=== PATIENT | female | born 1940 | race Caucasian/White ===

== ENCOUNTER → 2016-08-08 | Outpatient (CLI) | payer MEDICARE, BC ==
[~2016-08-08] MED LIST: ASPI-496 PO; ASPI-624 PO; ASPI325T4 PO; CLOP75TA22 PO; ESTR1TAB7 PO; MULT-658 PO; NITR0.4T8 SL; OMEP20TA62 PO; POLY17PO3 PO; SIMV10TA3 PO; will bring list
== END | disposition home or self-care (01) ==
LOC: CFH 09:49
PROVIDERS: ATTEND Internal Medicine Cardiovascular Disease
DX: I25.10 Atherosclerotic heart disease of native coronary artery without angina pectoris (principal); I08.1 Rheumatic disorders of both mitral and tricuspid valves
CPT/HCPCS: 93306

== ENCOUNTER → 2016-09-22 | Outpatient (CLI) | payer MEDICARE, BC | END | disposition home or self-care (01) | LOC: CFH 13:57 | PROVIDERS: ATTEND Family Medicine | DX: Z13.820 Encounter for screening for osteoporosis (principal); M81.0 Age-related osteoporosis without current pathological fracture; C50.911 Malignant neoplasm of unspecified site of right female breast | CPT/HCPCS: 77080 ==

== ENCOUNTER → 2016-10-05 | Outpatient (CLI) | payer MEDICARE, BC | END | disposition home or self-care (01) | LOC: CFH 13:28 | PROVIDERS: ATTEND Family Medicine | DX: R94.5 Abnormal results of liver function studies (principal) | CPT/HCPCS: 36415; 80076 ==

== ENCOUNTER → 2016-10-06 | Outpatient (CLI) | payer MEDICARE, BC ==
[2016-10-06 16:03] LABS: HEP B SURF. AB > 1000.0 mIU/mL (0.0-10.0)
[2016-10-06 16:42] LABS: HEPATITIS C VIRUS ANTIBODY Nonreactive (Nonreactive)
[2016-10-06 16:43] LABS: HEPATITIS A ANTIBODY TOTAL Reactive (Nonreactive)
== END | disposition home or self-care (01) ==
LOC: LAB 14:45
PROVIDERS: ATTEND Family Medicine
DX: R94.5 Abnormal results of liver function studies (principal)
CPT/HCPCS: 36415; 80076; 82390; 82728; 84075; 84080; 86704; 86705; 86706; 86708; 86709; 86803; 87350

== ENCOUNTER → 2016-10-12 | Outpatient (CLI) | payer MEDICARE, BC | END | disposition home or self-care (01) | LOC: CFH 08:39 | PROVIDERS: ATTEND Family Medicine | DX: J98.4 Other disorders of lung (principal); K80.20 Calculus of gallbladder without cholecystitis without obstruction; R94.5 Abnormal results of liver function studies | CPT/HCPCS: 76705 ==

== ENCOUNTER → 2017-01-12 | Outpatient (CLI) | payer MEDICARE, BC ==
[~2017-01-12] MED LIST changes: +ASPI325T17 PO; -ASPI325T4 PO; -CLOP75TA22 PO; +CLOP75TA52 PO; +NITR0.4T28 SL; -NITR0.4T8 SL
== END | disposition home or self-care (01) ==
LOC: CFH 12:52
PROVIDERS: ATTEND Family Medicine
DX: Z12.31 Encounter for screening mammogram for malignant neoplasm of breast (principal); Z85.3 Personal history of malignant neoplasm of breast; Z92.3 Personal history of irradiation; Z90.11 Acquired absence of right breast and nipple
CPT/HCPCS: G0202

== ENCOUNTER 2017-02-23 07:52 | Day surgery (SDC) | payer MEDICARE, BC ==
[~2017-02-23] VITALS: Ht 158.8 cm; Wt 72.9 kg
[~2017-02-23 07:52] MED LIST changes: +ANAS1TAB PO; +ATOR40TA PO; +BUPIVACAINE/PF 0.5% ONE; +CALC-451 PO; +ISOSULFAN BLUE 10 MG/ML, 5ML IV ONE; +MELA10TA PO; +VENL150C PO
[2017-02-23] MEDS ORDERED: LIDOCAINE 1%, 20ML ONE (10:24)
[2017-02-23 10:44] VITALS: BP 150/88
[2017-02-23] MEDS ORDERED: LIDOCAINE 1%, 2ML ONE (11:09)
[2017-02-23] MEDS ORDERED: LACTATED RINGERS 1,000 ML IV SCH (11:20)
[2017-02-23] MEDS ORDERED: LIDOCAINE 1%, 2ML SQ PRN (11:30)
[2017-02-23] MEDS ORDERED: FENTANYL PF 100 MCG/2ML ONE ×2 (11:49)
[2017-02-23] MEDS ORDERED: MIDAZOLAM 1 MG/ML, 2ML ONE (11:49)
[2017-02-23] MEDS ORDERED: HYDROmorphone 1 MG/ML, 1ML IV PRN (12:30)
[2017-02-23] MEDS ORDERED: METOPROLOL 1 MG/ML, 5ML IV PRN (12:30)
[2017-02-23] MEDS ORDERED: DIAZEPAM 5 MG/ML, 2ML IVPush PRN (12:30)
[2017-02-23] MEDS ORDERED: PROMETHAZINE 25 MG/ML, 1ML IV PRN (12:30)
[2017-02-23] MEDS ORDERED: ONDANSETRON 2MG/ML, 2ML IVPush PRN (12:30)
[2017-02-23] MEDS ORDERED: ALBUTEROL SULFATE 2.5 MG/3 ML NPPB PRN (12:30)
[2017-02-23] MEDS ORDERED: MIDAZOLAM 1 MG/ML, 2ML IV PRN (12:30)
[2017-02-23] MEDS ORDERED: EPHEDRINE 50 MG/ML, 1ML IVPush PRN (12:30)
[2017-02-23] MEDS ORDERED: FENTANYL PF 100 MCG/2ML IV PRN (12:30)
[2017-02-23] MEDS ORDERED: hydrALAzine 20 MG/ML, 1ML IV PRN (12:30)
[2017-02-23] MEDS ORDERED: ACETAMINOPHEN 325 MG TABLET PO PRN (12:30)
[2017-02-23] MEDS ORDERED: OXYcodone 5 MG/5 ML ORAL.SOL UDC PO PRN (12:30)
[2017-02-23] MEDS ORDERED: MEPERIDINE/PF 25MG/0.5ML IVPush PRN (12:30)
[2017-02-23] MEDS ORDERED: HYDROcodone/APAP 7.5-325MG/15ML UDC PO PRN (12:30)
[2017-02-23] MEDS ORDERED: LABETALOL 5MG/ML, 20ML IV PRN (12:30)
[2017-02-23] MEDS ORDERED: EPINEPHRINE 1 MG/ML, 1ML INFIL ONE (12:31)
[2017-02-23] MEDS ORDERED: BUPIVACAINE/PF 0.5% INFIL ONE (12:31)
[2017-02-23] MEDS ORDERED: ISOSULFAN BLUE 10 MG/ML, 5ML IV ONE (12:33)
[2017-02-23] MEDS ORDERED: DEXAMETHASONE 4 MG/ML, 1ML ONE (13:02)
[2017-02-23] MEDS ORDERED: PROPOFOL 10 MG/ML, 20ML ONE (13:02)
[2017-02-23] MEDS ORDERED: ONDANSETRON 2MG/ML, 2ML ONE (13:02)
[2017-02-23] MEDS ORDERED: CEFAZOLIN 1,000 MG ONE (13:02)
== END 2017-02-23 16:00 ==
LOC: CFH 07:52 → OUT 16:00
PROVIDERS: ATTEND Surgery
DX: C50.912 Malignant neoplasm of unspecified site of left female breast (principal); E78.5 Hyperlipidemia, unspecified; I25.10 Atherosclerotic heart disease of native coronary artery without angina pectoris; F10.10 Alcohol abuse, uncomplicated; Z79.82 Long term (current) use of aspirin; Z95.5 Presence of coronary angioplasty implant and graft
CPT/HCPCS: 19125; 19285; 38525; 38792; 88307; 88329; 93005; C1729; G0206; J0171; J0690; J1100; J2250; J2405; J2704; J3010; J3490

== ENCOUNTER 2017-03-07 11:31 | Inpatient (IN) | payer MEDICARE, BC ==
[~2017-03-07] VITALS: Ht 157.5 cm; Wt 71.4 kg
[~2017-03-07 11:31] MED LIST changes: -BUPIVACAINE/PF 0.5% ONE; -ISOSULFAN BLUE 10 MG/ML, 5ML IV ONE
[2017-03-07] MEDS ORDERED: SODIUM CHLORIDE 0.9% 1,000 ML IV ONE (12:11)
[2017-03-07] MEDS ORDERED: ASPIRIN 81 MG TABLET CHEW PO ONE (12:30)
[2017-03-07] MEDS ORDERED: MORPHINE SULFATE 4 MG/ML, 1ML IVPush ONE (12:30)
[2017-03-07] MEDS ORDERED: SODIUM CHLORIDE FLUSH 10ML SYR IVF ONE (12:30)
[2017-03-07 12:53] LABS: BLOOD UREA NITROGEN 22 mg/dL (7-18); HEMATOCRIT 44.1 % (34.6-47.8); HEMOGLOBIN 14.9 g/dL (11.7-16.4); WHITE BLOOD COUNT 11.4 x10^3/uL (3.4-10)
[2017-03-07 12:58] LABS: IS PT STATUS REG ER OR PRE ER? YES
[2017-03-07] MEDS ORDERED: ASPIRIN 81 MG TABLET CHEW ONE (13:03)
[2017-03-07] MEDS ORDERED: ONDANSETRON 2MG/ML, 2ML ONE (13:05)
[2017-03-07] MEDS ORDERED: MORPHINE SULFATE 4 MG/ML, 1ML ONE (13:05)
[2017-03-07] MEDS ORDERED: OMNIPAQUE 350 MG/ML, 100ML BOTTLE ONE (13:42)
[2017-03-07] MEDS ORDERED: LORazepam 2 MG/ML, 1ML ONE (15:05)
[2017-03-07] MEDS ORDERED: MAALOX/HYOSCYAMINE/LIDOCAINE 45 ML BTL ONE (15:05)
[2017-03-07] MEDS ORDERED: ONDANSETRON 2MG/ML, 2ML IVPush ONE (15:30)
[2017-03-07] MEDS: SODIUM CHLORIDE 0.9% 1,000 ML IV SCH (15:45)
[2017-03-07] MEDS ORDERED: SODIUM CHLORIDE 0.9% 1,000 ML IV SCH (15:50)
[2017-03-07 15:54] VITALS: BP 145/82
[2017-03-07] MEDS ORDERED: morphine SULFATE 10 MG/ML, 1ML IVPush PRN (16:00)
[2017-03-07] MEDS ORDERED: MAALOX/HYOSCYAMINE/LIDOCAINE 45 ML BTL PO PRN (16:00)
[2017-03-07] MEDS ORDERED: POLYETHYLENE GLYCOL 17 GM PACKET PO PRN (16:00)
[2017-03-07] MEDS ORDERED: LABETALOL 5MG/ML, 20ML IVPush PRN (16:00)
[2017-03-07] MEDS ORDERED: DOCUSATE 100 MG CAPSULE PO PRN (16:00)
[2017-03-07] MEDS ORDERED: ENALAPRILAT 1.25 MG/ML, 2ML IVPush PRN (16:00)
[2017-03-07] MEDS ORDERED: LORazepam 2 MG/ML, 1ML IVPush ONE (16:00)
[2017-03-07] MEDS ORDERED: MAALOX/HYOSCYAMINE/LIDOCAINE 45 ML BTL PO ONE (16:00)
[2017-03-07] MEDS ORDERED: ONDANSETRON 2MG/ML, 2ML IVPush PRN (16:00)
[2017-03-07] MEDS ORDERED: NITROGLYCERIN 0.4 MG BOTTLE (25 TABS) SL PRN (16:00)
[2017-03-07] MEDS ORDERED: ACETAMINOPHEN 325 MG TABLET PO PRN (16:00)
[2017-03-07] MEDS ORDERED: BISACODYL 10 MG SUPP PR PRN (16:00)
[2017-03-07] MEDS: HYDROcodone/APAP 5/325 TABLET PO PRN ×3 (16:56→23:45)
[2017-03-07] MEDS: PANTOPRAZOLE 20MG TABLET PO SCH (16:56)
[2017-03-07 18:31] LABS: IS PT STATUS REG ER OR PRE ER? NO
[2017-03-07 19:30] VITALS: BP 104/67
[2017-03-07] MEDS: ATORVASTATIN 40 MG TABLET PO SCH (20:36)
[2017-03-07] MEDS: VENLAFAXINE 75 MG CAP ER PO SCH (20:36)
[2017-03-08 00:31] LABS: IS PT STATUS REG ER OR PRE ER? NO
[2017-03-08 00:53] VITALS: BP 116/73
[2017-03-08] MEDS: SODIUM CHLORIDE 0.9% 1,000 ML IV SCH ×3 (02:01→22:25)
[2017-03-08 06:32] LABS: HEMATOCRIT 37.7 % (34.6-47.8); HEMOGLOBIN 12.8 g/dL (11.7-16.4); WHITE BLOOD COUNT 8.6 x10^3/uL (3.4-10)
[2017-03-08 06:43] LABS: ASPARTATE AMINO TRANSFERASE 30 U/L (15-37); BLOOD UREA NITROGEN 14 mg/dL (7-18)
[2017-03-08 07:57] VITALS: BP 148/88
[2017-03-08] MEDS ORDERED: REGADENOSON 0.4 MG/5 ML SYRINGE ONE (08:05)
[2017-03-08] MEDS: MULTIVITAMIN 1 TABLET PO SCH (08:16)
[2017-03-08] MEDS: PANTOPRAZOLE 20MG TABLET PO SCH ×2 (08:16→20:13)
[2017-03-08] MEDS: VENLAFAXINE 75 MG CAP ER PO SCH ×2 (08:16→21:25)
[2017-03-08] MEDS: CALCIUM/VITAMIN D3 250-125 TABLET PO SCH (08:16)
[2017-03-08] MEDS: ASPIRIN 325 MG TABLET EC PO SCH (08:16)
[2017-03-08] MEDS ORDERED: ANASTROZOLE 1 MG TABLET PO SCH (09:00)
[2017-03-08] MEDS: HEPARIN 5,000 UNITS/ML, 1ML SQ SCH ×2 (11:30→20:13)
[2017-03-08 12:09] LABS: PATH.CAST-FLAG NOT PRESENT; SPERM-FLAG NOT PRESENT; SRC-FLAG NOT PRESENT; XTAL-FLAG NOT PRESENT; YLC-FLAG NOT PRESENT
[2017-03-08 13:19] VITALS: BP 150/88
[2017-03-08] MEDS ORDERED: SODIUM CHLORIDE 0.9% 1,000 ML IV SCH (15:50)
[2017-03-08] MEDS ORDERED: CEFTRIAXONE PMX 1GM/50ML 50 ML IV SCH (17:00)
[2017-03-08 19:56] VITALS: BP 166/95
[2017-03-08] MEDS: ATORVASTATIN 40 MG TABLET PO SCH (20:13)
[2017-03-09 01:44] VITALS: BP 156/95
[2017-03-09] MEDS: HEPARIN 5,000 UNITS/ML, 1ML SQ SCH (04:03)
[2017-03-09] MEDS: SODIUM CHLORIDE 0.9% 1,000 ML IV SCH (05:30)
[2017-03-09 06:04] LABS: BLOOD UREA NITROGEN 11 mg/dL (7-18)
[2017-03-09 06:05] LABS: HEMATOCRIT 38.9 % (34.6-47.8); HEMOGLOBIN 13.3 g/dL (11.7-16.4); WHITE BLOOD COUNT 6.2 x10^3/uL (3.4-10)
[2017-03-09] MEDS: MULTIVITAMIN 1 TABLET PO SCH (08:15)
[2017-03-09] MEDS: CALCIUM/VITAMIN D3 250-125 TABLET PO SCH (08:15)
[2017-03-09] MEDS: PANTOPRAZOLE 20MG TABLET PO SCH (08:15)
[2017-03-09] MEDS: ASPIRIN 325 MG TABLET EC PO SCH (08:15)
[2017-03-09] MEDS: VENLAFAXINE 75 MG CAP ER PO SCH (08:16)
[2017-03-09 08:51] VITALS: BP 156/95
[2017-03-09] MEDS ORDERED: SUCR1ORA5 PO (09:55)
[2017-03-09 10:40] VITALS: BP 156/91
== END 2017-03-09 12:13 | disposition home or self-care (01) | DRG 391 ==
LOC: ED 13:19 → EDIP 14:19 → 5SO 15:52 → DCLOUNGE 03-09 11:59
PROVIDERS: ADMIT Family Medicine; ATTEND Family Medicine
DX: K21.9 Gastro-esophageal reflux disease without esophagitis (principal); J69.0 Pneumonitis due to inhalation of food and vomit; J98.11 Atelectasis; D72.829 Elevated white blood cell count, unspecified; R07.89 Other chest pain; I25.10 Atherosclerotic heart disease of native coronary artery without angina pectoris; K59.09 Other constipation; N28.9 Disorder of kidney and ureter, unspecified; Z79.82 Long term (current) use of aspirin; Z82.49 Family history of ischemic heart disease and other diseases of the circulatory system; Z85.3 Personal history of malignant neoplasm of breast; Z95.5 Presence of coronary angioplasty implant and graft
CPT/HCPCS: 36415; 71020; 71275; 78452; 80048; 80053; 81001; 82040; 83735; 83880; 84100; 84145; 84443; 84484; 85025; 85610; 87086; 93005; 93017; 96361; 96374; 96375; J0696; J1644; J2405; J2785; Q9967; A9502; C9898; J2060; J7030

== ENCOUNTER → 2017-03-17 | Outpatient (CLI) | payer MEDICARE, BC ==
[~2017-03-17] MED LIST changes: +SUCR1ORA5 PO
== END | disposition home or self-care (01) ==
LOC: ROC 09:41
PROVIDERS: ATTEND Radiology Radiation Oncology
DX: C50.911 Malignant neoplasm of unspecified site of right female breast (principal); J98.11 Atelectasis; R91.1 Solitary pulmonary nodule; Z98.890 Other specified postprocedural states; Z79.899 Other long term (current) drug therapy
CPT/HCPCS: G0463

== ENCOUNTER → 2017-05-10 | Outpatient (CLI) | payer MEDICARE, BC | END | disposition home or self-care (01) | LOC: ROC 10:32 | PROVIDERS: ATTEND Radiology Radiation Oncology | DX: C50.919 Malignant neoplasm of unspecified site of unspecified female breast (principal) | CPT/HCPCS: G0463 ==

== ENCOUNTER → 2017-05-25 | Outpatient (CLI) | payer MEDICARE, BC ==
[2017-05-25 12:55] LABS: ANION GAP 9 mmol/L (5-15); CALCIUM 9.7 mg/dL (8.5-10.1); CHLORIDE 105 mmol/L (98-107)
[2017-05-25 13:06] LABS: ALANINE AMINOTRANSFERASE 69 U/L (12-78); ALKALINE PHOSPHATASE 113 U/L (45-117); BILIRUBIN,TOTAL 0.7 mg/dL (0.2-1.0); CHOL/HDL RATIO 2.7; CHOLESTEROL, TOTAL 179 mg/dL (140-239); CREATININE 0.98 mg/dL (0.55-1.02); HDL CHOL % 37 % (28-40); HDL CHOLESTEROL (DIRECT) 67 mg/dL (40-60); LDL CHOLESTEROL,CALCULATED 91 mg/dL (54-169); LDL/HDL RATIO 1.4 (0.5-3.0); T4 (THYROXINE) 4.8 mcg/dL (4.8-13.9); TOTAL PROTEIN 7.5 g/dL (6.4-8.2); TRIGLYCERIDES 103 mg/dL (50-200); VLDL CHOLESTEROL 21 mg/dL (0-25)
== END ==
LOC: CFH 10:10
PROVIDERS: ATTEND Internal Medicine Cardiovascular Disease
DX: I25.10 Atherosclerotic heart disease of native coronary artery without angina pectoris (principal); E78.00 Pure hypercholesterolemia, unspecified
CPT/HCPCS: 36415; 80053; 80061; 84436; 84481

== ENCOUNTER → 2017-08-17 | Outpatient (CLI) | payer MEDICARE, BC | END | disposition home or self-care (01) | LOC: CFH 13:48 | PROVIDERS: ATTEND Radiology Radiation Oncology | DX: C50.412 Malignant neoplasm of upper-outer quadrant of left female breast (principal); Z85.3 Personal history of malignant neoplasm of breast | CPT/HCPCS: 77065 ==

== ENCOUNTER → 2018-02-07 | Outpatient (CLI) | payer MEDICARE, BC | END | disposition home or self-care (01) | LOC: CFH 12:11 | PROVIDERS: ATTEND Family Medicine | DX: N64.4 Mastodynia (principal); M81.0 Age-related osteoporosis without current pathological fracture; C50.412 Malignant neoplasm of upper-outer quadrant of left female breast; Z87.891 Personal history of nicotine dependence; Z78.0 Asymptomatic menopausal state | CPT/HCPCS: 77080; 77066 ==

== ENCOUNTER 2018-08-15 11:19 | Outpatient (CLI) | payer MEDICARE, BC ==
[~2018-08-15 11:19] MED LIST changes: +POLY17PO29 PO; -POLY17PO3 PO
== END 2018-08-15 23:59 | disposition home or self-care (01) ==
LOC: CFH 11:19
PROVIDERS: ATTEND Family Medicine
DX: N63.20 Unspecified lump in the left breast, unspecified quadrant (principal); N63.10 Unspecified lump in the right breast, unspecified quadrant; Z85.3 Personal history of malignant neoplasm of breast; Z98.890 Other specified postprocedural states
CPT/HCPCS: 76642; 77066; G0279

== ENCOUNTER → 2018-10-01 | Outpatient (CLI) | payer MEDICARE, BC | END | disposition home or self-care (01) | LOC: CFH 12:38 | PROVIDERS: ATTEND Family Medicine | DX: J84.10 Pulmonary fibrosis, unspecified (principal); R06.2 Wheezing | CPT/HCPCS: 71046 ==

== ENCOUNTER → 2018-10-16 | Outpatient (CLI) | payer MEDICARE, BC | END | disposition home or self-care (01) | LOC: CFH 14:09 | PROVIDERS: ATTEND Family Medicine | DX: R06.2 Wheezing (principal) | CPT/HCPCS: 71046 ==

== ENCOUNTER → 2019-04-30 | Outpatient (CLI) | payer MEDICARE, BC ==
[2019-04-30 13:29] LABS: BASOPHILS # (AUTO) 0.06 x10^3/uL (0-0.1); BASOPHILS % (AUTO) 1 % (0-1); EOSINOPHILS # (AUTO) 0.06 x10^3/uL (0-0.4); EOSINOPHILS % (AUTO) 1 % (1-7); LYMPHOCYTES % (AUTO) 34 % (22-44); MD NO; MEAN CORPUSCULAR HEMOGLOBIN 32.5 pg (27.0-34.8); MEAN CORPUSCULAR HGB CONC 32.9 g/dL (32.4-35.8); MEAN CORPUSCULAR VOLUME 98.9 fL (80-100); MEAN PLATELET VOLUME 8.5 fL (7.4-10.4); MONOCYTES # (AUTO) 0.47 x10^3/uL (0.2-0.8); MONOCYTES % (AUTO) 8 % (2-9); NEUTROPHILS # (AUTO) 3.28 x10^3/uL (1.8-6.8); NEUTROPHILS % (AUTO) 56 % (42-75); PLATELET COUNT 270 x10^3/uL (130-400); RED BLOOD COUNT 4.77 x10^6/uL (3.82-5.3); RED CELL DISTRIBUTION WIDTH 13.2 % (9.6-15.2)
[2019-04-30 13:45] LABS: ANION GAP 8 mmol/L (5-15); CALCIUM 9.9 mg/dL (8.5-10.1); CHLORIDE 102 mmol/L (98-107)
[2019-04-30 13:52] LABS: ALANINE AMINOTRANSFERASE 40 U/L (12-78); ALKALINE PHOSPHATASE 98 U/L (45-117); BILIRUBIN,TOTAL 0.7 mg/dL (0.2-1.0); CHOL/HDL RATIO 2.3; CHOLESTEROL, TOTAL 157 mg/dL (140-239); CREATININE 0.95 mg/dL (0.55-1.02); HDL CHOL % 43 % (28-40); HDL CHOLESTEROL (DIRECT) 68 mg/dL (40-60); LDL CHOLESTEROL,CALCULATED 77 mg/dL (54-169); LDL/HDL RATIO 1.1 (0.5-3.0); TOTAL PROTEIN 7.6 g/dL (6.4-8.2); TRIGLYCERIDES 59 mg/dL (50-200); VLDL CHOLESTEROL 12 mg/dL (0-25)
== END | disposition home or self-care (01) ==
LOC: CFH 08:56
PROVIDERS: ATTEND Internal Medicine Cardiovascular Disease
DX: E78.00 Pure hypercholesterolemia, unspecified (principal); I25.10 Atherosclerotic heart disease of native coronary artery without angina pectoris; R73.9 Hyperglycemia, unspecified; Z87.891 Personal history of nicotine dependence
CPT/HCPCS: 36415; 80053; 80061; 85025

== ENCOUNTER → 2020-06-05 | Outpatient (CLI) | payer MEDICARE, BC ==
[~2020-06-05] MED LIST changes: +SIMV10TA18 PO; -SIMV10TA3 PO
== END | disposition home or self-care (01) ==
LOC: CFH 13:40
PROVIDERS: ATTEND Family Medicine
DX: N63.10 Unspecified lump in the right breast, unspecified quadrant (principal)
CPT/HCPCS: 76642; 77061; 77065; G0279